=== PATIENT | male | born 1945 | race Caucasian/White ===

== ENCOUNTER 2018-02-28 11:25 | Emergency (ER) | payer OTHER ==
[2018-02-28 11:42] VITALS: BP 150/60
--- NOTE | 2018-02-28 12:39 | EDPHY ---
H & P Time Seen by Provider: 02/28/18 11:34 HPI/ROS: CHIEF COMPLAINT: Right shoulder pain HISTORY OF PRESENT ILLNESS: Patient states he was going up some stairs at home yesterday afternoon and tripped and fell. He landed on a hardwood floor on his right shoulder. He has pain in that shoulder ever since. He states he was not knocked out. He denies other injuries. He did not have any lightheadedness or chest pain prior to his fall. No other injuries reported. REVIEW OF SYSTEMS: Negative except per HPI. General Appearance: Alert, no distress. Eyes: Pupils equal and round no icterus Respiratory: No respiratory distress Neurological: Awake, alert, no focal deficits. Skin: Warm and dry, no rashes. Musculoskeletal: Neck is supple nontender. Left upper extremity normal. Right shoulder with some ecchymosis and swelling diffusely. Tenderness to palpation diffusely above the proximal humerus. No clavicle tenderness or deformity. Distal sensation, strength, circulation intact. Extremities are symmetrical, full range of motion, no edema. Psychiatric: Patient is oriented X 3, there is no agitation. Medical/surgical history: Coronary artery disease with stents, hypertension, anxiety, diabetes type 2, high cholesterol. Social history: Moving to [place] tomorrow. Smoking Status: Never smoked Constitutional: Initial Vital Signs Temperature (C) 36.8 C 02/28/18 11:35 Heart Rate 79 02/28/18 11:35 Respiratory Rate 16 02/28/18 11:35 Blood Pressure 150/60 H 02/28/18 11:35 O2 Sat (%) 95 02/28/18 11:35 O2 Delivery Mode Room Air Allergies/Adverse Reactions: meloxicam [From Mobic] Allergy (Intermediate, Verified 02/28/18 11:43) Abdominal Pain erythromycin base [Erythromycin Base] Allergy (Verified 02/28/18 11:43) Home Medications: Medication Instructions Recorded Altace 09/27/14 Ativan 09/27/14 Flomax 0.4 MG (RX) 09/27/14 GLIPIZIDE 09/27/14 Lopressor 100 mg (RX) 09/27/14 Paxil 09/27/14 Protonix 09/27/14 Tricor 09/27/14 Hydrocodone/APAP 5/325 [Aurora 1 - 2 tab PO Q6H PRN #20 tab 02/28/18 5/325 (*)] Medical Decision Making - Diagnostics Imaging Results: Imaging Impressions Humerus X-Ray 02/28/18 11:58 Impression: Slightly impacted right humeral neck fracture. 2. Right Humerus, 3 views History: Pain post fall Findings: The humerus below the humeral neck fracture is normal. Impression: Humeral neck fracture. Shoulder X-Ray 02/28/18 11:58 Impression: Slightly impacted right humeral neck fracture. 2. Right Humerus, 3 views History: Pain post fall Findings: The humerus below the humeral neck fracture is normal. Impression: Humeral neck fracture. Imaging: I viewed and interpreted images myself Differential Diagnosis: Differential diagnosis includes but is not limited to clavicle fracture, shoulder dislocation, humeral head fracture, other blunt chest trauma. After evaluation patient with humeral neck fracture without evidence of medical cause for his fall yesterday afternoon. Placed in a sling and given prescription for Aurora for pain. Patient is flying to [place] tomorrow as he is moving there. He will establish primary care and orthopedic surgeon in the area early next week. Discussed pain control methods including the use of Aurora and wrist associated with that medication. Also discussed the use of ice and a sling. Recommended gentle shoulder circles starting in 4-5 days. Understands follow- up plan and return precautions. Stable for discharge. Departure - Departure Disposition: Home, Routine, Self-Care Clinical Impression: Fracture of neck of humerus Qualifiers: Encounter type: initial encounter Fracture type: closed Laterality: right Qualified Code(s): S42.211A - Unspecified displaced fracture of surgical neck of right humerus, initial encounter for closed fracture Condition: Good Instructions: Hydrocodone/Acetaminophen (By mouth), Proximal Humerus Fracture ( ED) Additional Instructions: Use ice, ibuprofen and Tylenol during the day, Aurora for pain at night. Keep your arm in a sling at all times when up up during the day. After 5-7 days you can start doing shoulder circles as discussed. On Saturday, in [place], make an appointment with the orthopedic surgeon for re-evaluation. Ideally you would be seen in 5-7 days from your injury. If you developed numbness, weakness, tingling in your arm, consider being rechecked by a physician at an emergency department or urgent care. Referrals: NONE *PRIMARY CARE P,. [Primary Care Provider] - As per Instructions Prescriptions: Hydrocodone/APAP 5325 [Aurora 5/325 (*)] 1 - 2 tab PO Q6H PRN #20 tab PRN Reason: Pain, Moderate
== END 2018-02-28 12:45 | disposition home or self-care (01) ==
LOC: CED 11:25
DX: S42.211A Unspecified displaced fracture of surgical neck of right humerus, initial encounter for closed fracture (principal); I10 Essential (primary) hypertension; I25.10 Atherosclerotic heart disease of native coronary artery without angina pectoris; E11.9 Type 2 diabetes mellitus without complications; W01.0XXA Fall on same level from slipping, tripping and stumbling without subsequent striking against object, initial encounter; Y92.009 Unspecified place in unspecified non-institutional (private) residence as the place of occurrence of the external cause
CPT/HCPCS: 73030; 73060; 99283; A4565